=== PATIENT | female | born 1990 | race Caucasian/White ===

== ENCOUNTER 2017-07-24 17:53 | Emergency (ER) | payer SELFPAY ==
[2017-07-24] MEDS ORDERED: ACETAMINOPHEN 325 MG TAB ONE (18:31)
[2017-07-24 18:45] LABS: APPEARANCE,URINE Clear (CLEAR); BILIRUBIN,URINE Negative (NEGATIVE); COLOR,URINE Yellow (YELLOW); GLUCOSE, URINE (UA) Negative (NEGATIVE); KETONES,URINE Negative (NEGATIVE); LEUKOCYTE ESTERASE ,URINE Negative (NEGATIVE); NITRATE,URINE Negative (NEGATIVE); OCCULT BLOOD,URINE Negative (NEGATIVE); PROTEIN,URINE Negative (NEGATIVE)
[2017-07-24 18:53] LABS: HCG,QUAL RESULT NEGATIVE (NEGATIVE)
== END 2017-07-24 20:24 | disposition home or self-care (01) ==
LOC: EDH 17:53
DX: J02.9 Acute pharyngitis, unspecified (principal)
CPT/HCPCS: 81003; 81025; 87880

== ENCOUNTER 2020-08-16 21:07 | Emergency (ER) | payer OTHER | END 2020-08-16 23:37 | disposition home or self-care (01) | LOC: EDH 21:07 | DX: J06.9 Acute upper respiratory infection, unspecified (principal); B34.9 Viral infection, unspecified; Z20.822 Contact with and (suspected) exposure to COVID-19 | CPT/HCPCS: 71045; 87426; 87804 ×2; 99284; U0003 ==

== ENCOUNTER 2021-01-20 14:25 | Emergency (ER) | payer OTHER ==
[~2021-01-20] VITALS: Ht 157.5 cm; Wt 81.2 kg
[2021-01-20 14:27] VITALS: BP 128/79
[2021-01-20 14:59] LABS: APPEARANCE,URINE Clear (CLEAR); BILIRUBIN,URINE Negative (NEGATIVE); COLOR,URINE Yellow (YELLOW); GLUCOSE, URINE (UA) Negative (NEGATIVE); KETONES,URINE Negative (NEGATIVE); LEUKOCYTE ESTERASE ,URINE Negative (NEGATIVE); NITRATE,URINE Negative (NEGATIVE); OCCULT BLOOD,URINE Negative (NEGATIVE); PROTEIN,URINE Negative (NEGATIVE); UROBILINOGEN,URINE 0.2 mg/dL (0.2-1.0)
[2021-01-20 15:22] LABS: BASOPHILS % (AUTO) 0.4 % (0.0-5.0); HEMATOCRIT 47.2 % (36-48); LYMPHOCYTES % (AUTO) 23.8 % (21.0-51.0); MEAN CORPUSCULAR HEMOGLOBIN 30.8 pg (27.0-33.0); MEAN CORPUSCULAR HGB CONC 33.7 g/dL (32.0-36.0); MEAN CORPUSCULAR VOLUME 91.3 fL (79-99); MONOCYTES % (AUTO) 6.8 % (3.0-13.0); NEUTROPHILS % (AUTO) 67.6 % (40.0-77.0); PLATELET COUNT (AUTO) 261 K/uL (130-400); RED BLOOD CELL COUNT(AUTO) 5.17 MIL/uL (4.00-5.50); RED CELL DISTRIBUTION WIDTH 12.4 % (11.0-15.5)
[2021-01-20 15:38] LABS: CREATININE 0.8 mg/dL (0.5-1.5); POTASSIUM 4.2 mmol/L (3.5-5.1)
[2021-01-20 15:42] LABS: ALBUMIN 4.1 g/dL (3.5-5.0); BILIRUBIN,TOTAL 0.6 mg/dL (0.2-1.0); TOTAL PROTEIN, SERUM 8.2 g/dL (6.0-8.3)
[2021-01-20] MEDS ORDERED: FLUT16H NASAL (19:51)
[2021-01-20] MEDS ORDERED: CETI5TAB20 PO (19:51)
[2021-01-20] MEDS ORDERED: KETOROLAC 60 MG VIAL (30MG/ML) IM ONE (20:00)
[2021-01-20] MEDS ORDERED: OXYMETAZOLINE HCL SPRAY 15 ML BOTTLE EN SCH (20:00)
== END 2021-01-20 20:10 | disposition home or self-care (01) ==
LOC: EDH 14:25
DX: J01.90 Acute sinusitis, unspecified (principal); Z79.1 Long term (current) use of non-steroidal anti-inflammatories (NSAID)
CPT/HCPCS: 36415; 80053; 81003; 81025; 85025; 96372; 99283; J1885

== ENCOUNTER 2022-02-02 11:26 | Emergency (ER) | payer OTHER ==
[~2022-02-02] VITALS: Ht 157.5 cm; Wt 66.7 kg
[~2022-02-02 11:26] MED LIST: CETI5TAB20 PO; FLUT16H NASAL
[2022-02-02 11:52] LABS: BASOPHILS % (AUTO) 0.2 % (0.0-5.0); EOSINOPHILS % (AUTO) 0.4 % (0.0-8.0); MEAN CORPUSCULAR HGB CONC 35.1 g/dL (32.0-36.0); MEAN CORPUSCULAR VOLUME 88.2 fL (79-99); NEUTROPHILS % (AUTO) 73.2 % (40.0-77.0); PLATELET COUNT (AUTO) 314 K/uL (130-400); WHITE BLOOD COUNT (AUTO) 13.9 K/uL (4.8-10.8)
[2022-02-02 12:02] LABS: CREATININE 0.7 mg/dL (0.5-1.5); POTASSIUM 3.2 mmol/L (3.5-5.1)
[2022-02-02 12:06] LABS: ALBUMIN 4.2 g/dL (3.5-5.0); TOTAL PROTEIN, SERUM 8.1 g/dL (6.0-8.3)
[2022-02-02 12:18] VITALS: BP 118/82
[2022-02-02] MEDS ORDERED: ONDANSETRON 4MG TABLET PO ONE (12:30)
[2022-02-02] MEDS ORDERED: DICYCLOMINE HCL 10 MG/5 ML ML PO ONE (12:30)
[2022-02-02] MEDS ORDERED: MAG/ALUM/SIMETH 30 ML UDCUP PO ONE (12:30)
[2022-02-02] MEDS ORDERED: LIDOCAINE HCL 2% VISCOUS 15 ML UDCUP PO ONE (12:30)
[2022-02-02] MEDS ORDERED: FAMOTIDINE 20MG TAB PO ONE (12:30)
[2022-02-02] MEDS ORDERED: POTASSIUM BICARB/CIT AC 25 MEQ TABLET.EFF PO ONE (12:30)
[2022-02-02] MEDS ORDERED: ONDANSETRON ODT 4MG TAB ONE (13:02)
[2022-02-02 13:33] LABS: APPEARANCE,URINE CLEAR (CLEAR); BILIRUBIN,URINE NEGATIVE (NEGATIVE); COLOR,URINE COLORLESS (YELLOW); GLUCOSE, URINE (UA) NEGATIVE (NEGATIVE); KETONES,URINE NEGATIVE (NEGATIVE); LEUKOCYTE ESTERASE ,URINE NEGATIVE Leu/uL (NEGATIVE); NITRATE,URINE NEGATIVE (NEGATIVE); OCCULT BLOOD,URINE SMALL (NEGATIVE); PH,URINE 6.5 (5.0-8.0); PROTEIN,URINE NEGATIVE (NEGATIVE); UROBILINOGEN,URINE 0.2 mg/dL (0.2-1.0)
[2022-02-02 13:41] LABS: HCG,QUALITATIVE URINE NEGATIVE (NEGATIVE)
[2022-02-02 14:07] LABS: RBC,URINE None Seen /HPF (0-1)
[2022-02-02 14:08] LABS: BACTERIA,URINE Rare /HPF (None Seen); SQUAMOUS EPITHELIAL CELL,UR Rare /HPF (0-2); WBC,URINE None Seen /HPF (0-1)
[2022-02-02] MEDS ORDERED: FAMO-136 PO (14:12)
[2022-02-02] MEDS ORDERED: DICY20TA2 PO (14:12)
== END 2022-02-02 14:39 | disposition home or self-care (01) ==
LOC: EDH 11:26
DX: K29.70 Gastritis, unspecified, without bleeding (principal); K21.9 Gastro-esophageal reflux disease without esophagitis; Z98.890 Other specified postprocedural states; Z79.899 Other long term (current) drug therapy
CPT/HCPCS: 36415; 80053; 81001; 81025; 83690; 85025

== ENCOUNTER 2022-07-30 10:04 | Emergency (ER) | payer OTHER ==
[~2022-07-30] VITALS: Ht 157.5 cm; Wt 70.8 kg
[~2022-07-30 10:04] MED LIST changes: +DICY20TA2 PO; +FAMO-136 PO
[2022-07-30] MEDS ORDERED: ONDANSETRON ODT 4MG TAB SL ONE (11:00)
[2022-07-30] MEDS ORDERED: HYDROXYZINE 25 MG TABLET PO ONE (11:00)
[2022-07-30 11:19] LABS: BASOPHILS % (AUTO) 0.4 % (0.0-5.0); HEMATOCRIT 47.4 % (36-48); LYMPHOCYTES % (AUTO) 16.1 % (21.0-51.0); MEAN CORPUSCULAR HEMOGLOBIN 30.8 pg (27.0-33.0); MEAN CORPUSCULAR VOLUME 87.9 fL (79-99); MONOCYTES % (AUTO) 8.4 % (3.0-13.0); NEUTROPHILS % (AUTO) 74.7 % (40.0-77.0); PLATELET COUNT (AUTO) 268 K/uL (130-400); RED BLOOD CELL COUNT(AUTO) 5.39 MIL/uL (4.00-5.50); RED CELL DISTRIBUTION WIDTH 11.9 % (11.0-15.5); WHITE BLOOD COUNT (AUTO) 7.9 K/uL (4.8-10.8)
[2022-07-30 11:20] LABS: APPEARANCE,URINE CLOUDY (CLEAR); BILIRUBIN,URINE NEGATIVE (NEGATIVE); COLOR,URINE YELLOW (YELLOW); GLUCOSE, URINE (UA) NEGATIVE (NEGATIVE); KETONES,URINE 100 mg/dL (NEGATIVE); LEUKOCYTE ESTERASE ,URINE 25 Leu/uL (NEGATIVE); NITRATE,URINE NEGATIVE (NEGATIVE); OCCULT BLOOD,URINE NEGATIVE (NEGATIVE); PH,URINE 5.5 (5.0-8.0); PROTEIN,URINE 30 mg/dL (NEGATIVE); UROBILINOGEN,URINE 0.2 mg/dL (0.2-1.0)
[2022-07-30 11:27] LABS: AMPHET/METH SCREEN,URINE NEGATIVE (NEGATIVE); BARBITURATE SCREEN, URINE NEGATIVE (NEGATIVE); BENZODIAZEPINES SCREEN,URINE NEGATIVE (NEGATIVE); CANNABINOID SCREEN,URINE POSITIVE (NEGATIVE); COCAINE SCREEN,URINE NEGATIVE (NEGATIVE); OPIATE SCREEN,URINE NEGATIVE (NEGATIVE); PHENCYCLIDINE SCREEN,URINE NEGATIVE (NEGATIVE)
[2022-07-30 11:28] LABS: CARBON DIOXIDE 26 mmol/L (21-32); CHLORIDE 104 mmol/L (101-111); CREATININE 0.8 mg/dL (0.5-1.5); GLOMERULAR FILTR. RATE CALC 102 mL/min (>90); GLUCOSE,RANDOM 109 mg/dL (70-105); POTASSIUM 3.4 mmol/L (3.5-5.1); SODIUM SERUM 140 mmol/L (136-145); UREA NITROGEN, BLOOD 13 mg/dL (7-18)
[2022-07-30 11:29] LABS: BACTERIA,URINE RARE /HPF (None Seen); MUCUS,URINE MANY LPF (None Seen); OTHER CASTS, URINE 2 /LPF (None Seen); SQUAMOUS EPITHELIAL CELL,UR RARE /HPF (0-2)
[2022-07-30 11:32] LABS: ALANINE AMINOTRANSFERASE 22 U/L (12-78); ALBUMIN 4.5 g/dL (3.5-5.0); ASPARTATE AMINOTRANSFERASE 13 U/L (10-37); TOTAL PROTEIN, SERUM 8.7 g/dL (6.0-8.3)
[2022-07-30 11:34] LABS: ACETAMINOPHEN < 1 mcg/mL (10-30); SALICYLATE < 2.8 mg/dL (2.8-20.0)
[2022-07-30] MEDS ORDERED: LIDOCAINE HCL 2% VISCOUS 15 ML UDCUP PO ONE (15:00)
[2022-07-30] MEDS ORDERED: MAG/ALUM/SIMETH 30 ML UDCUP PO ONE (15:00)
[2022-07-30] MEDS ORDERED: DICYCLOMINE HCL 10 MG/5 ML ML PO ONE (15:00)
[2022-07-30] MEDS ORDERED: HYDR-3421 PO (15:24)
[2022-07-30 15:35] VITALS: BP 126/72
[2022-07-31] MEDS ORDERED: FLUO20CA30 PO (18:25)
== END 2022-07-30 15:44 | disposition home or self-care (01) ==
LOC: EDH 10:04
DX: F32.A Depression, unspecified (principal); F41.9 Anxiety disorder, unspecified; K21.9 Gastro-esophageal reflux disease without esophagitis
CPT/HCPCS: 99284; 80053; 80305; 85025; 81025; 36415; 81001; G0481

== ENCOUNTER 2022-10-08 22:15 | Emergency (ER) | payer OTHER ==
[~2022-10-08] VITALS: Ht 157.5 cm; Wt 69.4 kg
[~2022-10-08 22:15] MED LIST changes: +FLUO20CA30 PO; +HYDR-3421 PO
[2022-10-08] MEDS ORDERED: CORTSOL AD (23:18)
[2022-10-08 23:26] VITALS: BP 123/60
== END 2022-10-08 23:33 | disposition home or self-care (01) ==
LOC: EDH 22:15
DX: H92.01 Otalgia, right ear (principal); H60.331 Swimmer's ear, right ear; F41.9 Anxiety disorder, unspecified; K21.9 Gastro-esophageal reflux disease without esophagitis

== ENCOUNTER 2022-12-08 09:43 | Emergency (ER) | payer OTHER ==
[~2022-12-08] VITALS: Ht 157.5 cm; Wt 74.8 kg
[~2022-12-08 09:43] MED LIST changes: +CORTSOL AD
[2022-12-08 10:23] LABS: BASOPHILS # (AUTO) 0.03 K/uL (0.00-0.20); BASOPHILS % (AUTO) 0.4 % (0.0-5.0); EOSINOPHILS # (AUTO) 0.01 K/uL (0.00-0.70); EOSINOPHILS % (AUTO) 0.1 % (0.0-8.0); HEMATOCRIT 45.1 % (36-48); IMMATURE GRANULOCYTE ABSOLUTE 0.02 K/uL (0-1); LYMPHOCYTES # (AUTO) 1.8 K/uL (1.0-4.8); LYMPHOCYTES % (AUTO) 22.1 % (21.0-51.0); MEAN CORPUSCULAR HEMOGLOBIN 31.2 pg (27.0-33.0); MEAN CORPUSCULAR HGB CONC 34.4 g/dL (32.0-36.0); MEAN CORPUSCULAR VOLUME 90.7 fL (79-99); MONOCYTES # (AUTO) 0.6 K/uL (0.1-1.0); MONOCYTES % (AUTO) 7.9 % (3.0-13.0); NEUTROPHILS # (AUTO) 5.5 K/uL (1.8-7.7); NEUTROPHILS % (AUTO) 69.2 % (40.0-77.0); PLATELET COUNT (AUTO) 251 K/uL (130-400); RED BLOOD CELL COUNT(AUTO) 4.97 MIL/uL (4.00-5.50); RED CELL DISTRIBUTION WIDTH 12.1 % (11.0-15.5)
[2022-12-08 10:43] LABS: ALBUMIN 4.1 g/dL (3.5-5.0); BILIRUBIN,TOTAL 0.5 mg/dL (0.2-1.0); CREATININE 0.7 mg/dL (0.5-1.5); POTASSIUM 4.2 mmol/L (3.5-5.1); TOTAL PROTEIN, SERUM 8.1 g/dL (6.0-8.3)
[2022-12-08] MEDS ORDERED: MAG/ALUM/SIMETH 30 ML UDCUP PO ONE (11:30)
[2022-12-08] MEDS ORDERED: LIDOCAINE HCL 2% VISCOUS 15 ML UDCUP PO ONE (11:30)
[2022-12-08] MEDS ORDERED: HYDROXYZINE 25 MG TABLET PO ONE (11:30)
[2022-12-08] MEDS ORDERED: FAMOTIDINE 20MG TAB PO ONE (11:30)
[2022-12-08 12:17] VITALS: BP 128/82; PULSE 82; RESP 18; O2SAT 99
[2022-12-08 12:19] LABS: APPEARANCE,URINE CLEAR (CLEAR); BILIRUBIN,URINE NEGATIVE (NEGATIVE); COLOR,URINE COLORLESS (YELLOW); GLUCOSE, URINE (UA) NEGATIVE (NEGATIVE); KETONES,URINE NEGATIVE (NEGATIVE); LEUKOCYTE ESTERASE ,URINE NEGATIVE Leu/uL (NEGATIVE); NITRATE,URINE NEGATIVE (NEGATIVE); OCCULT BLOOD,URINE NEGATIVE (NEGATIVE); PH,URINE 6.5 (5.0-8.0); PROTEIN,URINE NEGATIVE (NEGATIVE); UROBILINOGEN,URINE 0.2 mg/dL (0.2-1.0)
[2022-12-08 12:23] LABS: ADD UA MICROSCOPIC NO
[2022-12-08] MEDS ORDERED: FAMO20TA8 PO (12:30)
[2022-12-08] MEDS ORDERED: HYDR-3421 PO (12:30)
[2022-12-11] MEDS ORDERED: IOHEXOL-350 75 ML VIAL IV ONE (14:25)
== END 2022-12-08 12:50 | disposition home or self-care (01) ==
LOC: EDH 09:43
DX: K29.70 Gastritis, unspecified, without bleeding (principal); F32.A Depression, unspecified; F41.9 Anxiety disorder, unspecified; K21.9 Gastro-esophageal reflux disease without esophagitis
CPT/HCPCS: 36415; 80053; 81003; 81025; 82150; 83690; 85025

== ENCOUNTER 2022-12-11 12:05 | Emergency (ER) | payer OTHER ==
[~2022-12-11] VITALS: Ht 157.5 cm; Wt 72.1 kg
[~2022-12-11 12:05] MED LIST changes: +FAMO20TA8 PO
[2022-12-11] MEDS ORDERED: IOHEXOL 350 MG/ML 100ML INFUS..BTL IV ONE (12:06)
[2022-12-11] MEDS ORDERED: FAMOTIDINE 20MG VIAL IV ONE (12:30)
[2022-12-11] MEDS ORDERED: ONDANSETRON 4MG INJ IVP ONE (12:30)
[2022-12-11] MEDS ORDERED: LIDOCAINE HCL 2% VISCOUS 15 ML UDCUP PO ONE (12:30)
[2022-12-11] MEDS ORDERED: MAG/ALUM/SIMETH 30 ML UDCUP PO ONE (12:30)
[2022-12-11] MEDS ORDERED: 0.9%NACL 1000ML 1,000 ML IV ONE (12:30)
[2022-12-11] MEDS ORDERED: DICYCLOMINE HCL 10 MG/5 ML ML PO ONE (12:30)
[2022-12-11 13:19] LABS: BASOPHILS # (AUTO) 0.03 K/uL (0.00-0.20); BASOPHILS % (AUTO) 0.4 % (0.0-5.0); EOSINOPHILS # (AUTO) 0.04 K/uL (0.00-0.70); EOSINOPHILS % (AUTO) 0.5 % (0.0-8.0); IMMATURE GRANULOCYTE ABSOLUTE 0.02 K/uL (0-1); LYMPHOCYTES # (AUTO) 1.8 K/uL (1.0-4.8); MEAN CORPUSCULAR HEMOGLOBIN 31.7 pg (27.0-33.0); MEAN CORPUSCULAR HGB CONC 34.9 g/dL (32.0-36.0); MEAN CORPUSCULAR VOLUME 90.9 fL (79-99); MONOCYTES # (AUTO) 0.7 K/uL (0.1-1.0); MONOCYTES % (AUTO) 7.8 % (3.0-13.0); NEUTROPHILS # (AUTO) 5.7 K/uL (1.8-7.7); NEUTROPHILS % (AUTO) 69.1 % (40.0-77.0); PLATELET COUNT (AUTO) 254 K/uL (130-400); RED BLOOD CELL COUNT(AUTO) 4.95 MIL/uL (4.00-5.50); RED CELL DISTRIBUTION WIDTH 11.9 % (11.0-15.5); WHITE BLOOD COUNT (AUTO) 8.3 K/uL (4.8-10.8)
[2022-12-11 13:32] LABS: CREATININE 0.7 mg/dL (0.5-1.5); POTASSIUM 3.8 mmol/L (3.5-5.1)
[2022-12-11 13:36] LABS: ALBUMIN 4.1 g/dL (3.5-5.0); BILIRUBIN,TOTAL 0.8 mg/dL (0.2-1.0); TOTAL PROTEIN, SERUM 8.1 g/dL (6.0-8.3)
[2022-12-11 13:53] LABS: APPEARANCE,URINE CLEAR (CLEAR); BILIRUBIN,URINE NEGATIVE (NEGATIVE); GLUCOSE, URINE (UA) NEGATIVE (NEGATIVE); KETONES,URINE NEGATIVE (NEGATIVE); LEUKOCYTE ESTERASE ,URINE NEGATIVE Leu/uL (NEGATIVE); NITRATE,URINE NEGATIVE (NEGATIVE); OCCULT BLOOD,URINE NEGATIVE (NEGATIVE); PROTEIN,URINE NEGATIVE (NEGATIVE); UROBILINOGEN,URINE 0.2 mg/dL (0.2-1.0)
[2022-12-11 13:54] LABS: ADD UA MICROSCOPIC NO; COLOR,URINE YELLOW (YELLOW)
[2022-12-11 13:56] LABS: HCG,QUALITATIVE URINE NEGATIVE (NEGATIVE)
[2022-12-11] MEDS ORDERED: FAMO20TA8 PO (15:13)
[2022-12-11] MEDS ORDERED: PANTOPRAZOLE 40 MG/VIAL IVP ONE (15:30)
[2022-12-11 16:11] VITALS: BP 129/74; PULSE 91; RESP 18; O2SAT 98
[2022-12-12] MEDS ORDERED: ONDA4TAB10 PO (20:06)
== END 2022-12-11 16:16 | disposition home or self-care (01) ==
LOC: EDH 12:05 → UNDOADMOB 12:06 → LDH 12:06 → EDH 16:16
DX: R10.13 Epigastric pain (principal); F41.9 Anxiety disorder, unspecified; K21.9 Gastro-esophageal reflux disease without esophagitis
CPT/HCPCS: 99285; 74177; 96374; 96361; 96375; 80053; 83690; 85025; 81003; 81025; 36415; J3490; J7030; J2405; C9113; Q9967

== ENCOUNTER 2022-12-12 16:44 | Emergency (ER) | payer OTHER ==
[~2022-12-12] VITALS: Ht 157.5 cm; Wt 72.1 kg
[2022-12-12 18:16] LABS: APPEARANCE,URINE CLEAR (CLEAR); BILIRUBIN,URINE NEGATIVE (NEGATIVE); COLOR,URINE YELLOW (YELLOW); GLUCOSE, URINE (UA) NEGATIVE (NEGATIVE); KETONES,URINE 5 mg/dL (NEGATIVE); LEUKOCYTE ESTERASE ,URINE 25 Leu/uL (NEGATIVE); NITRATE,URINE NEGATIVE (NEGATIVE); OCCULT BLOOD,URINE NEGATIVE (NEGATIVE); PH,URINE 6.5 (5.0-8.0); PROTEIN,URINE 10 mg/dL (NEGATIVE); UROBILINOGEN,URINE 0.2 mg/dL (0.2-1.0)
[2022-12-12 18:21] LABS: ADD UA MICROSCOPIC YES
[2022-12-12 18:22] LABS: BACTERIA,URINE RARE /HPF (None Seen); MUCUS,URINE FEW LPF (None Seen); RBC,URINE 0-1 /HPF (0-1); SQUAMOUS EPITHELIAL CELL,UR RARE /HPF (0-2)
[2022-12-12 18:27] LABS: HCG,QUALITATIVE URINE NEGATIVE (NEGATIVE)
[2022-12-12] MEDS ORDERED: LACTATED RINGERS 1000ML 1,000 ML IV ONE (18:30)
[2022-12-12 18:38] LABS: AMPHET/METH SCREEN,URINE NEGATIVE (NEGATIVE); BARBITURATE SCREEN, URINE NEGATIVE (NEGATIVE); BENZODIAZEPINES SCREEN,URINE NEGATIVE (NEGATIVE); CANNABINOID SCREEN,URINE POSITIVE (NEGATIVE); COCAINE SCREEN,URINE NEGATIVE (NEGATIVE); OPIATE SCREEN,URINE NEGATIVE (NEGATIVE); PHENCYCLIDINE SCREEN,URINE NEGATIVE (NEGATIVE)
[2022-12-12 18:47] LABS: BASOPHILS # (AUTO) 0.04 K/uL (0.00-0.20); BASOPHILS % (AUTO) 0.5 % (0.0-5.0); EOSINOPHILS % (AUTO) 1.2 % (0.0-8.0); HEMATOCRIT 44.5 % (36-48); IMMATURE GRANULOCYTE ABSOLUTE 0.01 K/uL (0-1); LYMPHOCYTES # (AUTO) 3.5 K/uL (1.0-4.8); LYMPHOCYTES % (AUTO) 42.3 % (21.0-51.0); MEAN CORPUSCULAR HGB CONC 34.2 g/dL (32.0-36.0); MEAN CORPUSCULAR VOLUME 90.8 fL (79-99); MONOCYTES # (AUTO) 0.7 K/uL (0.1-1.0); MONOCYTES % (AUTO) 8.1 % (3.0-13.0); NEUTROPHILS % (AUTO) 47.8 % (40.0-77.0); PLATELET COUNT (AUTO) 258 K/uL (130-400); RED CELL DISTRIBUTION WIDTH 11.9 % (11.0-15.5); WHITE BLOOD COUNT (AUTO) 8.3 K/uL (4.8-10.8)
[2022-12-12 18:51] LABS: CREATININE 0.8 mg/dL (0.5-1.5); POTASSIUM 3.3 mmol/L (3.5-5.1)
[2022-12-12 18:56] LABS: ALBUMIN 4.2 g/dL (3.5-5.0); BILIRUBIN,TOTAL 0.7 mg/dL (0.2-1.0); TOTAL PROTEIN, SERUM 7.7 g/dL (6.0-8.3)
[2022-12-12 19:19] VITALS: BP 121/71; PULSE 78; RESP 18; O2SAT 95
[2022-12-12] MEDS ORDERED: CEFTRIAXONE 1G VIAL IVPB ONE (19:30)
[2022-12-12] MEDS ORDERED: POTASSIUM BICARB/CIT AC 25 MEQ TABLET.EFF PO ONE (19:30)
[2022-12-12] MEDS ORDERED: ONDA4TAB10 PO (20:06)
== END 2022-12-12 20:17 | disposition home or self-care (01) ==
LOC: EDH 16:44
DX: R07.89 Other chest pain (principal); N39.0 Urinary tract infection, site not specified; R00.2 Palpitations; E87.6 Hypokalemia; K21.9 Gastro-esophageal reflux disease without esophagitis; F41.9 Anxiety disorder, unspecified; E03.9 Hypothyroidism, unspecified
CPT/HCPCS: 99285; 96365; 71045; 96361; 84484; 80053; 80305; 85025; 81025; 36415; 93005; 81001; J7120; J0696

== ENCOUNTER 2024-01-09 10:09 | Emergency (ER) | payer OTHER ==
[~2024-01-09] VITALS: Ht 160 cm; Wt 74.8 kg
[~2024-01-09 10:09] MED LIST changes: +ONDA-243 PO
[2024-01-09 10:37] LABS: ADD UA MICROSCOPIC YES; APPEARANCE,URINE CLEAR (CLEAR); BILIRUBIN,URINE NEGATIVE (NEGATIVE); COLOR,URINE LIGHT-YELLOW (YELLOW); GLUCOSE, URINE (UA) NEGATIVE (NEGATIVE); KETONES,URINE NEGATIVE (NEGATIVE); LEUKOCYTE ESTERASE ,URINE 75 Leu/uL (NEGATIVE); NITRATE,URINE NEGATIVE (NEGATIVE); OCCULT BLOOD,URINE MODERATE (NEGATIVE); PH,URINE 5.5 (5.0-8.0); PROTEIN,URINE NEGATIVE (NEGATIVE); UROBILINOGEN,URINE 0.2 mg/dL (0.2-1.0)
[2024-01-09 10:39] LABS: HCG,QUALITATIVE URINE NEGATIVE (NEGATIVE)
[2024-01-09 10:41] LABS: BACTERIA,URINE RARE /HPF (None Seen); MUCUS,URINE RARE LPF (None Seen); SQUAMOUS EPITHELIAL CELL,UR FEW /HPF (0-2)
[2024-01-09 11:27] LABS: BASOPHILS # (AUTO) 0.04 K/uL (0.00-0.20); BASOPHILS % (AUTO) 0.5 % (0.0-5.0); EOSINOPHILS # (AUTO) 0.08 K/uL (0.00-0.70); IMMATURE GRANULOCYTE ABSOLUTE 0.02 K/uL (0-1); LYMPHOCYTES # (AUTO) 1.8 K/uL (1.0-4.8); MEAN CORPUSCULAR HEMOGLOBIN 31.7 pg (27.0-33.0); MEAN CORPUSCULAR VOLUME 93.3 fL (79-99); MONOCYTES # (AUTO) 0.7 K/uL (0.1-1.0); MONOCYTES % (AUTO) 9.2 % (3.0-13.0); NEUTROPHILS # (AUTO) 5.2 K/uL (1.8-7.7); PLATELET COUNT (AUTO) 261 K/uL (130-400); RED BLOOD CELL COUNT(AUTO) 5.04 MIL/uL (4.00-5.50); RED CELL DISTRIBUTION WIDTH 13.2 % (11.0-15.5); WHITE BLOOD COUNT (AUTO) 7.9 K/uL (4.8-10.8)
[2024-01-09 11:34] LABS: CREATININE 0.8 mg/dL (0.5-1.0); POTASSIUM 3.6 mmol/L (3.5-5.1)
[2024-01-09 11:40] LABS: ALBUMIN 3.7 g/dL (3.5-5.0); BILIRUBIN,TOTAL 0.4 mg/dL (0.2-1.0); TOTAL PROTEIN, SERUM 7.9 g/dL (6.0-8.3)
[2024-01-09] MEDS ORDERED: cefTRIAXone 1G VIAL IM ONE (12:30)
[2024-01-09] MEDS ORDERED: CEPH500B PO (12:37)
[2024-01-09] MEDS: cefTRIAXone 1G VIAL IVPB ONE (12:53)
[2024-01-09 13:01] VITALS: BP 112/75; PULSE 76; RESP 18; TEMP 97.9; O2SAT 97
== END 2024-01-09 13:06 | disposition home or self-care (01) ==
LOC: EDH 10:09
DX: N39.0 Urinary tract infection, site not specified (principal); F41.9 Anxiety disorder, unspecified; K21.9 Gastro-esophageal reflux disease without esophagitis; Z79.899 Other long term (current) drug therapy
CPT/HCPCS: 99283; 96374; 80053; 85025; 87086; 87491; 87591; 81001; 81025; 36415; J0696

== ENCOUNTER 2025-03-28 05:36 | Emergency (ER) | payer OTHER ==
[~2025-03-28] VITALS: Ht 160 cm; Wt 72.1 kg
[~2025-03-28 05:36] MED LIST changes: +CEPH500B PO; -FLUO20CA30 PO; +FLUO20CA95 PO
[2025-03-28 06:00] LABS: ADD UA MICROSCOPIC YES; APPEARANCE,URINE TURBID (CLEAR); GLUCOSE, URINE (UA) NEGATIVE (NEGATIVE); LEUKOCYTE ESTERASE ,URINE 500 Leu/uL (NEGATIVE); NITRATE,URINE NEGATIVE (NEGATIVE); OCCULT BLOOD,URINE LARGE (NEGATIVE)
[2025-03-28] MEDS ORDERED: NITR100C4 PO (06:11)
--- NOTE | 2025-03-28 06:18 | ERN ---
ED Note History of Present Illness Stated Complaint: C/O PAIN WITH BURNING WHEN VOIDING Chief Complaint: Painful Urination Time Seen by MD: 05:43 Dictation: This is a 34-year-old female who presented to the emergency room complaining of dysuria and burning micturition that started this a.m.. It appears that patient has been to the emergency room in the past a couple of times with similar symptoms when she was diagnosed with UTI. She denied any fever chills or rigors. She denied any hematuria or vaginal discharge. She denied any recent instrumentation. Patient denied any flank pain or lower back pain or suprapubic pain. Temperature 98 pulse 98 respirations 20 blood pressure 116/71 with a pulse oximetry of 98% on room air Patient has chronic medical problems include PCOS, GERD, anxiety, thyroid disease, H pylori and history of marijuana abuse Allergies: Coded Allergies: No Known Drug Allergies (Unverified Allergy, Unknown, 01/20/21) Home Meds Active Scripts Cephalexin Monohydrate (Keflex) 500 Mg Cap, 500 MG PO BID for 7 Days, #14 CAP Prov:MARY KATE IVAN MD 01/09/24 Ondansetron (Ondansetron Odt) 4 Mg Tab.rapdis, 4 MG PO Q6HPRN PRN for nausea, #12 TAB 0 Refills Prov:ANDREW REMY [facility] 12/12/22 Famotidine (Famotidine) 20 Mg Tablet, 20 MG PO BID, #60 TAB Prov:MATTI GARCIA [facility] 12/11/22 Famotidine (Famotidine) 20 Mg Tablet, 20 MG PO BID, #30 TAB Prov:EAMON BOYLE V [facility] 12/08/22 Hydroxyzine HCl (Hydroxyzine HCl) 25 Mg Tablet, 25 MG PO TID, #10 TAB Prov:EAMON BOYLE V [facility] 12/08/22 Neomy Sulf/Polymyx B Sulf/Hc (Cortisporin Otic Soln) 20 Drop/Ml Otsol, 4 DROP AD TID for 7 Days, #1 BOTTLE Prov:EAMON BOYLE V [facility] 10/08/22 Fluoxetine HCl (Prozac) 20 Mg Cap, 20 MG PO ONCE for MH for 5 Days, #5 CAP Prov:JOSE ASHER DNP 07/31/22 Hydroxyzine HCl (Hydroxyzine HCl) 25 Mg Tablet, 25 MG PO BID for ANXIETY for 7 Days, #14 TAB Prov:JOSE ASHER DNP 07/30/22 Dicyclomine HCl (Bentyl) 20 Mg Tab, 20 MG PO QID, #28 TAB Prov:CLEOPATRA AIKEN 02/02/22 Famotidine (Pepcid) 20 Mg Tablet, 20 MG PO BID, #60 TAB Prov:CLEOPATRA AIKEN 02/02/22 Fluticasone Propionate (Flonase Nasal Vevay) 50 Mcg/Ogden Vevay, 50 MCG NASAL BID for 14 Days, #1 INHALER 0 Refills Prov:ADARSH MCINTOSH MD 01/20/21 Cetirizine HCl (Cetirizine HCl) 5 Mg Tab.chew, 10 MG PO DAILY for 14 Days, #30 TAB.CHEW 0 Refills Prov:ADARSH MCINTOSH MD 01/20/21 Past Medical History Past Medical History: No Pertinent History Additional Past Medical Hx: PCOS, THYROID, H PYLORI Surgical History: None Surgical History Other: HEART CATH Family History: Negative Social History: Drugs, Lives with family LMP: Feb 20, 2025 : 1 Para: 1 RN Note Reviewed/Agreed w/PFSH: Yes Review of System Dictation Constitutional: Negative for fever,chills, and weight loss Eyes: Negative for injury, pain,redness, and discharge ENT: Negative for injury,pain or swelling Cardiovascular: Negative for chest pain, palpitations, and edema Respiratory: Negative for shortness of breath, cough, and wheezing, Abdomen/GI: Negative for abdominal pain, nausea, vomiting, diarrhea, and constipation Back: Negative for injury and pain : Negative for injury, bleeding and discharge positive for dysuria and burning micturition MS/Extremity: Negative for injury and deformity Skin: Negative for rash, and discoloration Neuro: Negative for headache, weakness, numbness, tingling, and seizure Psych: Negative for suicide ideation, homicidal ideation, and hallucinations Initial Vital Sign VS Vital Signs Date Time Temp Pulse Resp B/P (MAP) Pulse Ox O2 Delivery O2 Flow Rate FiO2 03/28/25 05:40 98.1 98 20 116/71 98 Room Air 03/28/25 06:04 0 21 Physical Exam Dictation General: awake, alert, NAD Head/Face: Normocephalic, atraumatic Eyes: PERRL, EOMI, vision at baseline ENT: oral cavity clear, TMs clear, no signs of infection Neck: Trachea midline, supple, no nuchal rigidity Cardiovascular: RRR, normal S1/S2, No MRGs, no JVD Respiratory: CTAB, no respiratory distress, No rales or wheezes Abdomen: Soft, non-tender, non-distended, normal bowel sounds, no guarding or rebound. Skin: Warm, dry, normal turgor, no rash MS/Extremity: Pulses equal, no cyanosis, neurovascular intact, FROM Neuro: COAx4, GCS 15, strength 5/5, CN 2-12 intact, normal cerebellar exam, normal gait, Psych: Normal behavior, mood, and affect normal Extremities-trace edema without any palpable cords, Homans sign is negative Results (Laboratory/Radiology) Laboratory/Radiology Laboratory Tests Test 03/28/25 05:48 Urine Color DARK-BROWN (YELLOW) Urine Appearance TURBID (CLEAR) Urine pH 6.0 (5.0-8.0) Urine Specific [place] 1.015 (1.001-1.031) Urine Protein 100 mg/dL (NEGATIVE) H Urine Glucose (UA) NEGATIVE mg/dL (NEGATIVE) Urine Ketones NEGATIVE mg/dL (NEGATIVE) Urine Occult Blood LARGE (NEGATIVE) H Urine Nitrate NEGATIVE (NEGATIVE) Urine Bilirubin NEGATIVE mg/dL (NEGATIVE) Urine Urobilinogen 0.2 mg/dL (0.2-1.0) Urine Leukocyte Esterase 500 Angel/uL (NEGATIVE) H Urine HCG, Qualitative NEGATIVE (NEGATIVE) Labs Reviewed?: Yes ED Course ED Course Orders Procedure Category Date Status Time Urinalysis Profile LAB 03/28/25 In Process 05:37 ,Urine Test LAB 03/28/25 Complete 05:40 Culture Urine ARNAUD 03/28/25 In Process 06:00 Ketorolac PHA 03/28/25 Verified Tromethamine 30mg/Ml 06:30 Ceftriaxone 1g Vial PHA 03/28/25 Verified (Rocephine 1g Inj) 06:30 Vital Signs Date Time Temp Pulse Resp B/P (MAP) Pulse Ox O2 Delivery O2 Flow Rate FiO2 03/28/25 06:04 98.6 95 18 114/76 98 Room Air* 0 21 03/28/25 05:40 98.1 98 20 116/71 98 Room Air Medical Decision Making MDM Differential diagnosis: Acute cystitis, pyelonephritis, vaginitis, urethritis, vulvovaginitis, cervicitis, foreign body, stent or stone or reactive urethritis. Any instrumentation related This is a 34-year-old female who presented to the emergency room complaining of dysuria and burning micturition that started this a.m.. It appears that patient has been to the emergency room in the past a couple of times with similar symptoms when she was diagnosed with UTI. She denied any fever chills or rigors. She denied any hematuria or vaginal discharge. She denied any recent instrumentation.Patient denied any flank pain or lower back pain or suprapubic pain. Temperature 98 pulse 98 respirations 20 blood pressure 116/71 with a pulse oximetry of 98% on room air Patient has chronic medical problems include PCOS, GERD, anxiety, thyroid disease, H pylori and history of marijuana abuse 6:05 a.m. urine test is negative. Urinalysis showed a leuko esterase of 500 Initiate empiric antibiotic therapy as well as NSAIDs Patient will be discharged to home on outpatient antibiotic therapy. Rationale: Tests considered and ordered secondary to shared decision making include: Urinalysis and urine test Previous outside records reviewed: Old ER visits. Risk of complication and/or morbidity or mortality of patient management: None Medications-Per medication reconciliation Need for hospitalization: Patient does not meet criteria for hospitalization. Need for emergency major/minor surgery: No There are no social concerns with this patient. Prescription drug management Prescriptions will include symptomatic care Patient's prior external medical records from other ER visits were reviewed by me as indicated. Prior testing and results from previous visits were reviewed. Prior tests were taken into account with medical decision making and resource utilization, independent historian/historians were used to obtain complete medical history. I independently interpreted the test that were performed, results were reviewed by me and considered findings on radiology if ordered. Medical management and examination interpretation discussions were had by me wit h other qualified healthcare professionals as indicated for the patient's care. Problem List Problem List: (1) UTI (urinary tract infection) DX & DISP Disposition: Discharge Departure Impression: Primary Impression: UTI (urinary tract infection) Condition: Stable Scripts Nitrofurantoin Monohyd/M-Cryst (Macrobid 100 mg Capsule) 100 Mg Capsule 1 CAP PO BID for 7 Days, #14 CAP 0 Refills Prov: BACILIO TINOCO MD 03/28/25 Additional Instructions: Patient and the caregiver have been informed of all the diagnostic tests and the imaging conducted during the today's visit to the emergency room and has verbalized understanding of the results I have personally reviewed and interpreted all diagnostic exams performed here in the ER today as well as the vital signs documented by the nursing staff. The patient is now being discharged to home and should follow up with the primary care physician or the specialist as directed by the ER staff. 1 schedule a follow-up appointment; call your primary care physician's office on the next business day to set up a follow-up appointment. 2. Monitor symptoms; if your symptoms worsen return to the emergency room immediately. 3. Return to school/work; you may return to work or school in 2 days or as directed by your primary care physician. 4. Manage pain and fever; take [id number] Tylenol or Advil for pain or fever if there are no contraindications follow the recommended dosage instructions. 5. Stay well hydrated; drink plenty of oral fluids to stay hydrated. 6. Take prescribed medications; take any medications prescribed in the emergency room as directed bring them with you to your primary care physician visit for possible adjustments. 7. Complete medication course; finish the entire course of medication as prescribed even if you start feeling better. Do not have any leftover medication unless instructed otherwise. 8. Follow up on culture results; if a urine culture and wound culture was ordered in the emergency room please follow-up with your primary care physician within 2-3 days to review the culture and sensitivity report for appropriate antibiotic therapy adjustments. 9. Resume home medications; you may resume taking your home medications unless instructed otherwise. Referrals: GONZÁLEZ BAIRD MD (PCP) BACILIO TINOCO MD Mar 28, 2025 06:18
[2025-03-28 06:24] LABS: NON-SQUAMOUS EPITHELIAL CELL 2 /HPF (0-2); SQUAMOUS EPITHELIAL CELL,UR MANY /HPF (0-2); UNCLASSIFIED CRYSTAL 46 /HPF (None Seen); WBC CLUMP MANY /HPF (0-1)
[2025-03-28 07:00] VITALS: BP 112/70; PULSE 82; RESP 18; TEMP 98.4; O2SAT 98
== END 2025-03-28 07:03 | disposition home or self-care (01) ==
LOC: EDH 05:36
DX: N39.0 Urinary tract infection, site not specified (principal); K21.9 Gastro-esophageal reflux disease without esophagitis; F41.9 Anxiety disorder, unspecified; E07.9 Disorder of thyroid, unspecified; Z87.42 Personal history of other diseases of the female genital tract; Z79.899 Other long term (current) drug therapy
CPT/HCPCS: 99284; 87086 ×2; 87186; 81001; 81025; 96372 ×2; J1885; J0696